=== PATIENT | female | born 2000 | race Caucasian/White ===

== ENCOUNTER 2024-02-23 18:04 | Emergency (ER) | payer OTHER ==
[~2024-02-23] VITALS: Ht 165.1 cm; Wt 67.3 kg
[2024-02-23 22:01] VITALS: BP 111/59; TEMP 97.4; O2SAT 96
[2024-02-23] MEDS: NS 1,000 ML IV ONE (22:30)
[2024-02-23] MEDS: METOCLOPRAMIDE INJ 10MG/2ML VIAL IV ONE (22:30)
[2024-02-23] MEDS: ACETAMINOPHEN *IV* 1,000 MG in IV 1 EA IV ONE (22:30)
== END 2024-02-23 23:01 | disposition left against medical advice (07) ==
LOC: M ED 18:04
DX: R51.9 Headache, unspecified (principal); H53.19 Other subjective visual disturbances; Z53.9 Procedure and treatment not carried out, unspecified reason
CPT/HCPCS: 96365; 96374; 99283; J0131; J2765

== ENCOUNTER 2024-02-26 12:32 | Outpatient (CLI) | payer OTHER ==
[~2024-02-26] VITALS: Ht 165.1 cm; Wt 66.7 kg
[2024-02-26 13:25] LABS: HEMATOCRIT 25.1 % (36.0-47.0); HEMOGLOBIN 8.1 g/dl (12.0-15.5); MEAN CORPUSCULAR HEMOGLOBIN 26.9 pg (27.0-33.0); MEAN CORPUSCULAR HGB CONC 32.3 g/dl (32.0-36.5); MEAN CORPUSCULAR VOLUME 83.4 fl (80.0-96.0); PLATELET COUNT, AUTOMATED 262 10^3/uL (150-450); RED BLOOD COUNT 3.01 10^6/uL (4.00-5.40); WHITE BLOOD COUNT 7.9 10^3/uL (4.0-10.0)
[2024-02-26 13:55] LABS: LIPASE 25 U/L (12-53)
[2024-02-26 13:56] LABS: AMYLASE 27 U/L (30-118)
[2024-02-26 13:57] LABS: ALBUMIN 2.6 G/DL (3.2-5.2); ALKALINE PHOSPHATASE 99 U/L (46-116); ALT/SGPT 14 U/L (7.0-40); AST/SGOT 10 U/L (<34); BILIRUBIN,DIRECT < 0.1 MG/DL (<0.4); BILIRUBIN,TOTAL 0.3 MG/DL (0.3-1.2); TOTAL PROTEIN 5.5 G/DL (5.7-8.2)
[2024-02-26 16:25] LABS: APPEARANCE, URINE HAZY (CLEAR); BACTERIA, URINE AUTO 1+ (NEGATIVE); BILIRUBIN, URINE AUTO NEGATIVE (NEGATIVE); BLOOD, URINE BLOOD NEGATIVE (NEGATIVE); COLOR, URINE YELLOW (YELLOW); GLUCOSE, URINE (UA) AUTO NEGATIVE (NEGATIVE); KETONE, URINE AUTO NEGATIVE (NEGATIVE); LEUKOCYTE ESTERASE, URINE AUTO 1+ (NEGATIVE); MUCUS, URINE SMALL (NEGATIVE); NITRITE, URINE AUTO NEGATIVE (NEGATIVE); PROTEIN, URINE AUTO NEGATIVE (NEGATIVE); RBC, URINE AUTO 0 /HPF (0-3); SPECIFIC GRAVITY URINE AUTO 1.014 (1.002-1.035); SQUAMOUS EPITHELIAL CELL UR AU 7 /HPF (0-6); UROBILINOGEN, URINE AUTO 0.2 mg/dL (0.0-2.0); WBC, URINE AUTO 3 /HPF (0-3)
[2024-02-26] MEDS ORDERED: HOME MED LIST COMPLETE! XX SCH (16:55)
== END 2024-02-26 16:30 | disposition home or self-care (01) ==
LOC: M LDO 12:32
PROVIDERS: ATTEND Advanced Practice Midwife
DX: O26.833 Pregnancy related renal disease, third trimester (principal); O32.1XX9 Maternal care for breech presentation, other fetus; O99.810 Abnormal glucose complicating pregnancy; O34.219 Maternal care for unspecified type scar from previous cesarean delivery; Z3A.34 34 weeks gestation of pregnancy
CPT/HCPCS: 36415; 59025; 76705; 76815; 80076; 81001; 82150; 83690; 85027; 87086; G0463

== ENCOUNTER → 2024-03-09 | Outpatient (REF) | payer OTHER | LOC: M PLALAB 14:37 | PROVIDERS: ATTEND Obstetrics & Gynecology | DX: Z36.89 Encounter for other specified antenatal screening (principal); Z3A.36 36 weeks gestation of pregnancy ==

== ENCOUNTER 2024-03-17 13:40 | Outpatient (CLI) | payer OTHER ==
[~2024-03-17] VITALS: Ht 167.6 cm; Wt 67.7 kg
[~2024-03-17 13:40] MED LIST: ALBUTEROL SULFATE 2.5MG/0.5ML INH NEB SOLN INH PRN; EPINEPHrine INJ 1 MG/ML 1ML AMP IM PRN; diphenhydrAMINE 50MG/ML VIAL IV PRN; methylPREDNISolone 125MG 2ML VIAL IV PRN
[2024-03-17 13:50] VITALS: BP 115/58; O2SAT 97
[2024-03-17] MEDS ORDERED: NS 1,000 ML IV SCH (14:00)
[2024-03-17] MEDS: FERRIC CARBOXYMALTOSE INJ 750 MG in NS 250 ML (>50kg) IV ONE (14:35)
[2024-03-17 15:40] VITALS: BP 119/56; O2SAT 96
== END 2024-03-17 15:50 ==
LOC: M INFU 13:40
PROVIDERS: ATTEND Student in an Organized Health Care Education/Training Program
DX: D64.9 Anemia, unspecified (principal)
CPT/HCPCS: 96365; J1439

== ENCOUNTER → 2024-03-25 | Outpatient (CLI) | payer OTHER ==
[~2024-03-25] MED LIST changes: -ALBUTEROL SULFATE 2.5MG/0.5ML INH NEB SOLN INH PRN; -EPINEPHrine INJ 1 MG/ML 1ML AMP IM PRN; +PRENTAB53 PO; -diphenhydrAMINE 50MG/ML VIAL IV PRN; -methylPREDNISolone 125MG 2ML VIAL IV PRN
== END ==
LOC: M LAB 07:50
PROVIDERS: ATTEND Obstetrics & Gynecology
DX: O99.810 Abnormal glucose complicating pregnancy (principal)

== ENCOUNTER 2024-03-28 16:38 | Outpatient (CLI) | payer OTHER ==
[~2024-03-28] VITALS: Ht 167.6 cm; Wt 70.5 kg
[2024-03-28 16:41] VITALS: BP 120/64
[2024-03-28] MEDS ORDERED: HOME MED LIST COMPLETE! XX SCH (17:10)
== END 2024-03-28 18:42 ==
LOC: M LDO 16:38
PROVIDERS: ATTEND Obstetrics & Gynecology
DX: O47.1 False labor at or after 37 completed weeks of gestation (principal); O32.1XX9 Maternal care for breech presentation, other fetus; Z3A.38 38 weeks gestation of pregnancy; O99.013 Anemia complicating pregnancy, third trimester; D50.9 Iron deficiency anemia, unspecified
CPT/HCPCS: 59025; G0463

== ENCOUNTER 2024-04-01 07:01 | Inpatient (IN) | payer OTHER ==
[~2024-04-01] VITALS: Ht 165.1 cm; Wt 70.3 kg
[2024-04-01] VITALS (9 sets, daily range): BP systolic 100–122; BP diastolic 52–63; TEMP 97.2; O2SAT 96–98
[2024-04-01] MEDS ORDERED: TRANEXAMIC ACID INJection 1,000 MG in NS 100 ML IV PRN (07:10)
[2024-04-01] MEDS ORDERED: OXYTOCIN DRIP 30 UNITS in IV 1 EA IV PRN (07:10)
[2024-04-01] MEDS ORDERED: CARBOPROST TROMETHAMINE 250 MCG/ML AMP IM PRN (07:10)
[2024-04-01] MEDS ORDERED: METHYLERGONOVINE MALEATE 0.2MG/ML 1ML VIAL IM PRN (07:10)
[2024-04-01] MEDS: BICITRA 30ML SOLN UDC PO ONE (07:56)
[2024-04-01] MEDS: LACTATED RINGER'S 1000 ML IV STA (07:56)
[2024-04-01] MEDS: LR 1,000 ML IV SCH ×2 (07:56→10:10)
[2024-04-01] MEDS: ceFAZolin SOD 2 GM in IV 1 EA IV ONE (07:56)
[2024-04-01 08:02] LABS: HEMATOCRIT 31.2 % (36.0-47.0); HEMOGLOBIN 9.9 g/dl (12.0-15.5); MEAN CORPUSCULAR HEMOGLOBIN 27.3 pg (27.0-33.0); MEAN CORPUSCULAR HGB CONC 31.7 g/dl (32.0-36.5); MEAN CORPUSCULAR VOLUME 86.2 fl (80.0-96.0); PLATELET COUNT, AUTOMATED 237 10^3/uL (150-450); RED BLOOD COUNT 3.62 10^6/uL (4.00-5.40); WHITE BLOOD COUNT 7.3 10^3/uL (4.0-10.0)
[2024-04-01] MEDS ORDERED: OXYTOCIN 30UNITS IN 0.9% NaCl 500ML IV BAG As Ordered ONE (08:27)
[2024-04-01] MEDS ORDERED: ACETAMINOPHEN 1000MG 100ML IV BAG As Ordered ONE (08:27)
[2024-04-01] MEDS ORDERED: KETOROLAC 60MG 2ML VIAL As Ordered ONE (08:48)
[2024-04-01] MEDS ORDERED: fentaNYL 100 MCG/2 ML INJECTION As Ordered ONE (08:48)
[2024-04-01] MEDS ORDERED: ONDANSETRON 4MG 2ML VIAL As Ordered ONE (08:48)
[2024-04-01 09:15] LABS: HEPATITIS C VIRUS ABY INDEX < 0.02 INDEX (<0.8)
[2024-04-01] MEDS ORDERED: MORPHINE PRES-FREE INJ 10 MG/10 ML VIAL As Ordered ONE (09:23)
[2024-04-01] MEDS ORDERED: ePHEDrine SULFATE 25 MG/5 ML(5MG/ML) SYRINGE As Ordered ONE (09:34)
[2024-04-01] MEDS ORDERED: RHO(D) IMMUNE GLOBULIN/MALTOSE 500MCG(2500IU)/2.2ML VIAL (WINRHO) IM SCH (09:35)
[2024-04-01] MEDS ORDERED: oxyCODONE 5MG TAB PO PRN ×3 (09:35→10:10)
[2024-04-01] MEDS ORDERED: METOCLOPRAMIDE INJ 10MG/2ML VIAL IV PRN ×2 (09:35→10:10)
[2024-04-01] MEDS ORDERED: SIMETHICONE 80MG CHEW TAB PO PRN (09:35)
[2024-04-01] MEDS ORDERED: ONDANSETRON 4MG 2ML VIAL IV PRN ×2 (09:35→10:10)
[2024-04-01] MEDS ORDERED: DOCUSATE SODIUM 100MG CAPSULE PO PRN (09:35)
[2024-04-01] MEDS ORDERED: OXYC-517 PO (09:48)
[2024-04-01] MEDS ORDERED: ACET-683 PO (09:48)
[2024-04-01] MEDS ORDERED: COLA100C5 PO (09:48)
[2024-04-01] MEDS ORDERED: IBUP-1022 PO (09:48)
[2024-04-01] MEDS: OXYTOCIN DRIP 30 UNITS in IV 1 EA IV SCH (10:03)
[2024-04-01] MEDS ORDERED: fentaNYL 100 MCG/2 ML INJECTION IV PRN (10:10)
[2024-04-01] MEDS ORDERED: NALOXONE INJ 0.4MG/1ML VIAL IV PRN ×2 (10:10)
[2024-04-01] MEDS ORDERED: **NOTE PATIENT COMMENT** MISC XX SCH (10:10)
[2024-04-01] MEDS: SLF 3 ML SYR IV SCH (11:00)
[2024-04-01] MEDS: ACETAMINOPHEN 500 MG TAB PO SCH (14:34)
[2024-04-01] MEDS: KETOROLAC 30 MG/ML 1ML VIAL IV SCH (16:09)
[2024-04-02 02:00] VITALS: BP 108/52; O2SAT 97
[2024-04-02] MEDS: diphenhydrAMINE 50MG/ML VIAL IV PRN (03:22)
[2024-04-02 06:00] VITALS: BP 110/53; O2SAT 97
[2024-04-02 06:23] LABS: HEMATOCRIT 25.9 % (36.0-47.0); MEAN CORPUSCULAR HEMOGLOBIN 27.3 pg (27.0-33.0); MEAN CORPUSCULAR HGB CONC 30.9 g/dl (32.0-36.5); MEAN CORPUSCULAR VOLUME 88.4 fl (80.0-96.0); PLATELET COUNT, AUTOMATED 192 10^3/uL (150-450); RED BLOOD COUNT 2.93 10^6/uL (4.00-5.40); WHITE BLOOD COUNT 8.9 10^3/uL (4.0-10.0)
[2024-04-02] MEDS: PRENATAL VITAMINS CHEWABLE TABLET PO SCH (08:31)
[2024-04-02] MEDS ORDERED: METOCLOPRAMIDE INJ 10MG/2ML VIAL IV PRN (10:10)
[2024-04-02 10:17] VITALS: BP 108/53; O2SAT 98
[2024-04-02] MEDS: IBUPROFEN 600MG TAB PO SCH (11:02)
[2024-04-02 14:00] VITALS: BP 112/54; O2SAT 97
[2024-04-02 22:00] VITALS: BP 114/56; O2SAT 98
[2024-04-03 02:00] VITALS: BP 101/56; O2SAT 97
[2024-04-03 05:59] VITALS: BP 107/54; O2SAT 97
[2024-04-03] MEDS: MEASLES,MUMPS,RUBELLA VACCINE INJ (MMR-II) SC.IMMUN ONE (08:10)
[2024-04-03 10:00] VITALS: BP 109/70; O2SAT 99
== END 2024-04-03 12:40 | disposition home or self-care (01) | DRG 773 ==
LOC: M LDI 07:01 → M OBS 10:40
PROVIDERS: ADMIT Obstetrics & Gynecology; ATTEND Obstetrics & Gynecology
PROC: 10D00Z1 Extraction of Products of Conception, Low, Open Approach (ICD-10-PCS; principal; 2024-04-01 08:30)
DX: O34.211 Maternal care for low transverse scar from previous cesarean delivery (principal); O32.1XX0 Maternal care for breech presentation, not applicable or unspecified; Z3A.39 39 weeks gestation of pregnancy; Z37.0 Single live birth

== ENCOUNTER 2024-08-11 18:26 | Emergency (ER) | payer OTHER ==
[~2024-08-11] VITALS: Ht 167.6 cm; Wt 63.3 kg
[~2024-08-11 18:26] MED LIST changes: +ACET-683 PO; +COLA100C5 PO; +IBUP-1022 PO; +OXYC-517 PO
[2024-08-11] MEDS: KETOROLAC 60MG 2ML VIAL IM ONE (23:34)
[2024-08-12] MEDS ORDERED: NAPR-837 PO (00:51)
[2024-08-12 00:59] VITALS: BP 123/70; TEMP 97.6; O2SAT 98
[2024-08-12] MEDS ORDERED: IBUP-1114 PO (13:12)
== END 2024-08-12 01:00 | disposition home or self-care (01) ==
LOC: M ED 18:26
DX: S46.911A Strain of unspecified muscle, fascia and tendon at shoulder and upper arm level, right arm, initial encounter (principal); Y92.9 Unspecified place or not applicable; Y93.9 Activity, unspecified; Y99.9 Unspecified external cause status; Z79.1 Long term (current) use of non-steroidal anti-inflammatories (NSAID); Z79.899 Other long term (current) drug therapy
CPT/HCPCS: 73080; 96372; 99283; J1885

== ENCOUNTER 2024-08-12 13:00 | Emergency (ER) | payer OTHER ==
[~2024-08-12] VITALS: Ht 167.6 cm; Wt 62.1 kg
[~2024-08-12 13:00] MED LIST changes: +NAPR-837 PO
[2024-08-12 13:01] VITALS: BP 119/71; TEMP 97.7; O2SAT 98
[2024-08-12] MEDS ORDERED: IBUP-1114 PO (13:12)
[2024-08-12] MEDS: ACETAMINOPHEN 325 MG TAB PO ONE (15:29)
== END 2024-08-12 15:36 | disposition home or self-care (01) ==
LOC: M ED 13:00
DX: M65.231 Calcific tendinitis, right forearm (principal); Z79.1 Long term (current) use of non-steroidal anti-inflammatories (NSAID); Z79.899 Other long term (current) drug therapy